=== PATIENT | female | born 1955 | race Caucasian/White ===

== ENCOUNTER 2023-04-10 11:07 | Outpatient (CLI) | payer MEDICARE, MEDICAID, SELFPAY ==
[2023-04-10 11:35] LABS: Basophils Absolute Auto 0.1 K/mm3 (0.0-0.1); Basophils Percent Auto 0.8 % (0.2-1.2); Eosinophils Absolute Auto 0.1 K/mm3 (0-0.3); Hematocrit 44.9 % (37.0-47.0); Hemoglobin 15.3 g/dL (12.0-15.0); Immature Granulocyte Absolute 0.01 K/mm3 (0.00-0.031); Immature Granulocyte Percent A 0.1 % (0-0.5); Lymphocytes Percent Auto 41.9 % (18.3-44.2); Mean Corpuscular HGB Conc 34.1 g/dl (32-36); Mean Corpuscular Hemoglobin 32.8 pg (26-34); Mean Corpuscular Volume 96.4 fl (80-100); Mean Platelet Volume 10.9 fl (7.4-10.4); Monocytes Absolute Auto 0.6 K/mm3 (0.1-0.6); Monocytes Percent Auto 5.4 % (2.6-8.5); Neutrophils Absolute Auto 5.3 K/mm3 (1.3-6.7); Neutrophils Percent Auto 50.8 % (45.5-73.1); Platelet Count Result 214 k/mm3 (150-375); Red Blood Count 4.66 M/mm3 (4.2-5.4); Red Cell Distribution Width 12.6 % (11.5-14.5); White Blood Count 10.5 K/mm3 (4.5-10.0)
[2023-04-10 12:31] LABS: Anion Gap 3 mmol/L (8-16); Blood Urea Nitrogen 9 mg/dL (7-17); Carbon Dioxide 32 mmol/L (22-30); Chloride 104 mmol/L (98-107); Potassium 5.4 mmol/L (3.4-5.0); Sodium 139 mmol/L (137-145)
[2023-04-10 12:32] LABS: Alanine Aminotransferase 26 U/L (6-35); Alkaline Phosphatase 65 U/L (38-126); Aspartate Amino Transferase 38 U/L (14-36); Bilirubin,Total 0.6 mg/dL (0.2-1.3); CRP < 0.5 mg/dL (<1.0); Calcium 10.1 mg/dL (8.4-10.2); Estimated Glomerular Filt Rate > 60; Glucose 100 mg/dL (65-110)
[2023-04-10 13:53] LABS: Erythrocyte Sedimentation Rate 12 mm/hr (0-20)
== END 2023-04-10 11:08 | disposition home or self-care (01) ==
PROVIDERS: Visit Provider Internal Medicine Hematology & Oncology
DX: D72.829 Elevated white blood cell count, unspecified (principal)
CPT/HCPCS: 36415; 80053; 85025; 85652; 86140; 88184; 88185

== ENCOUNTER 2023-11-10 10:51 | Outpatient (CLI) | payer MEDICARE, MEDICAID, SELFPAY ==
[2023-11-10 11:15] LABS: Basophils Absolute Auto 0.1 K/mm3 (0.0-0.1); Basophils Percent Auto 0.5 % (0.2-1.2); Eosinophils Absolute Auto 0.1 K/mm3 (0-0.3); Eosinophils Percent Auto 0.6 % (0-4.4); Hematocrit 42.8 % (37.0-47.0); Hemoglobin 14.3 g/dL (12.0-15.0); Immature Granulocyte Absolute 0.03 K/mm3 (0.00-0.031); Immature Granulocyte Percent A 0.3 % (0-0.5); Lymphocytes Percent Auto 40.2 % (18.3-44.2); Mean Corpuscular HGB Conc 33.4 g/dl (32-36); Mean Corpuscular Hemoglobin 32.5 pg (26-34); Mean Corpuscular Volume 97.3 fl (80-100); Mean Platelet Volume 10.4 fl (7.4-10.4); Monocytes Absolute Auto 0.5 K/mm3 (0.1-0.6); Neutrophils Absolute Auto 5.6 K/mm3 (1.3-6.7); Neutrophils Percent Auto 53.4 % (45.5-73.1); Platelet Count Result 215 k/mm3 (150-375); Red Cell Distribution Width 13.1 % (11.5-14.5); White Blood Count 10.4 K/mm3 (4.5-10.0)
[2023-11-10 11:22] LABS: Blood Urea Nitrogen 5 mg/dL (8-26); Carbon Dioxide 27 mmol/L (22-30); Chloride 105 mmol/L (98-109); Estimated Glomerular Filt Rate > 60; Glucose 107 mg/dL (70-105); Ionized Calcium (POC) 1.23 mmol/L (1.11-1.31); Potassium 4.1 mmol/L (3.5-4.9); Sodium 141 mmol/L (138-146)
== END 2023-11-10 10:52 | disposition home or self-care (01) ==
PROVIDERS: Visit Provider Internal Medicine Hematology & Oncology
DX: D72.829 Elevated white blood cell count, unspecified (principal)
CPT/HCPCS: 36415; 80047; 85025